=== PATIENT | female | born 1980 | race Caucasian/White ===

== ENCOUNTER 2016-03-16 09:07 | Inpatient (IN) | payer OTHER ==
[~2016-03-16] VITALS: Ht 167.6 cm; Wt 84.0 kg
[2016-03-16 09:15] VITALS: Ht 167.6 cm; Wt 84.0 kg
[2016-03-16] MEDS ORDERED: LACTATED RINGER'S 1,000 ML IV SCH (09:28)
[2016-03-16] MEDS ORDERED: LIDOCAINE 1% (MPF) 30 ML INJ INJ PRN (09:30)
[2016-03-16] MEDS ORDERED: MISOPROSTOL 200 MCG TAB PR PRN ×2 (09:30→14:30)
[2016-03-16] MEDS ORDERED: BUTORPHANOL 2 MG INJ IV PRN ×2 (09:30)
[2016-03-16] MEDS ORDERED: OXYTOCIN 30 UNITS/LR 500 ML IV PRN ×2 (09:30→14:30)
[2016-03-16] MEDS ORDERED: CARBOPROST 250 MCG INJ IM PRN ×2 (09:30→14:30)
[2016-03-16] MEDS ORDERED: LACTATED RINGER'S 1,000 ML IV PRN (09:30)
[2016-03-16] MEDS ORDERED: AMPICILLIN 2 GM/NS (PMX) 100 ML IV ONE (09:30)
[2016-03-16] MEDS ORDERED: METHYLERGONOVINE 0.2 MG INJ IM PRN ×2 (09:30→14:30)
[2016-03-16 10:05] LABS: BASOPHILS % 0.3 % (0.0-2.0); EOSINOPHILS # 0.1 10^3/ul (0.0-0.5); EOSINOPHILS % 1.3 % (0.0-7.0); HEMATOCRIT 32.4 % (37.0-47.0); HEMOGLOBIN 10.7 g/dl (12.0-16.0); LYMPHOCYTES % 20.1 % (15.0-51.0); MEAN CORPUSCULAR HEMOGLOBIN 27.7 pg (29.0-33.0); MEAN CORPUSCULAR HGB CONC 33.1 g/dl (32.0-37.0); MEAN CORPUSCULAR VOLUME 83.8 fl (82.0-101.0); MEAN PLATELET VOLUME 9.4 fl (7.4-10.4); MONOCYTE # 0.7 10^3/ul (0.3-0.9); MONOCYTES % 7.3 % (0.0-11.0); PLATELET COUNT 220 10^3/UL (140-440); RED BLOOD COUNT 3.87 10^6/ul (4.20-5.40); RED CELL DISTRIBUTION WIDTH 14.7 % (11.5-14.5); UNCORRECTED WBC 9.9 10^3/ul (4.8-10.8); WHITE BLOOD COUNT 9.9 10^3/ul (4.8-10.8)
[2016-03-16 10:07] LABS: CONDITION 1; LH ANALYZER COMMENTS 1
[2016-03-16 10:08] LABS: INR 0.94; PROTIME 12.6 Sec (12.2-14.2)
[2016-03-16 10:09] LABS: PARTIAL THROMBOPLASTIN TIME 29.1 Sec (25.0-35.0)
[2016-03-16] MEDS ORDERED: MINERAL OIL LIGHT 10 ML VIAL TOP ONE (10:30)
[2016-03-16] MEDS: OXYTOCIN 30 UNITS/LR 500 ML IV SCH ×2 (11:05→13:10)
--- NOTE | 2016-03-16 11:13 | HP ---
Date/Time of Note Date/Time of Note DATE: 03/16/16 TIME: 11:10 OB - History Hx of Present Free Text/Dictation admitted in active labor at 39+ weeks Chief Complaint: labor pains Estimated Due Date: Mar 22, 2016 : 5 Para: 3 Spontaneous : 1 Care: Good Care Ultrasounds: Normal mid trimester US Obstetrical Complications: None Medical Complications: Other (breast augmentation ) Past Family/Social History * Past Medical, Surgical, Family and Obstetric Histories reviewed from chart. Blood Type: O+ OB Admission Exam Physical Exam HEENT: WNL Heart: Rhythm Normal Lungs: Clear, Equal Abdomen: WNL Extremities: Normal Reflexes: Normal Cervical Dilatation: 5cm Effacement: 100% Station: -2 Membranes: Intact Heart Rate: 130's Accelerations: Accelerations Present Decelerations: No Decelerations Varibility: Moderate Contractions on Admission: < 5 Minutes Apart Date/Time Contractions Began: 03/16/2016 Frequency of Contractions: q5 Duration: >30 seconds Intensity: Moderate Last 72 hours Lab Results CBC & BMP 03/16/16 08:45 OB Assessment/Plan Reason for admission: active labor Other Assessment: term gestation Plan: Expectant Management Other plan: Proceed with labor SHAWN ZELAYA MD Mar 16, 2016 11:13
--- NOTE | 2016-03-16 11:15 | LDN ---
Date/Time of Note Date/Time of Note DATE: 03/16/16 TIME: 11:13 Delivery Summary of a viable infant over intact perineum Placenta Delivered: Spontaneously, Intact & Complete Meconium: none Perineum intact?: Yes Anesthesia type: None Estimated blood loss: 300 Sponge & Needle done & correct: Yes All needle counts correct: Yes Any foreign bodies felt in the: No Problems: Infant Delivery Information Sex Infant Sex: female Apgars 1 Minute: 9 5 Minute: 9 Suctioning Nose & mouth suctioned at lloyd: Yes Umbilical Cord Umbilical cord with: 3 Vessels Cord presentations: no nuchal cord Cord Blood was obtained: Yes Mother & Baby Disposition Disposition Mom & Baby to Maternity; Good: Yes (mother and baby were recovered in good condition ) Mom transferred to: Other (maternity ) Baby to NICU: No SHAWN ZELAYA MD Mar 16, 2016 11:15
[2016-03-16] MEDS ORDERED: OXYTOCIN 30 UNITS/LR 500 ML IV SCH (11:30)
[2016-03-16] MEDS ORDERED: AMPICILLIN 1 GM/NS (PMX) 50 ML IV SCH (13:30)
[2016-03-16 13:50] VITALS: BP 111/58; PULSE 55; RESP 18
[2016-03-16 14:10] VITALS: BP 112/56; PULSE 67; RESP 18
[2016-03-16] MEDS ORDERED: ZOLPIDEM 5 MG TAB PO PRN (14:30)
[2016-03-16] MEDS ORDERED: BENZOCAINE 20% 56 ML SPRAY TOP PRN (14:30)
[2016-03-16] MEDS ORDERED: ACETAMINOPHEN/CODEINE #3 TAB PO PRN (14:30)
[2016-03-16] MEDS ORDERED: DIBUCAINE 1% 30 GM OINT PR PRN (14:30)
[2016-03-16] MEDS ORDERED: WITCH HAZEL/GLYCERIN PAD PR PRN (14:30)
[2016-03-16] MEDS ORDERED: LANOLIN 7 GM TUBE TOP PRN (14:30)
[2016-03-16 15:36] VITALS: BP 107/54; PULSE 53; RESP 18
[2016-03-16] MEDS: IBUPROFEN 600 MG TAB PO SCH ×2 (17:24→23:46)
--- NOTE | 2016-03-16 18:10 | OPRPT ---
Intraop Record Datetime Report Generated by CPN: 03/16/2016 13:18 Datetime: 03/09/2016 20:56 Drug Allergies/Reactions: No Known Drug Allergies (03/09/2016) Datetime: 03/09/2016 20:44 Food Allergies/Reactions: PT. DENIES Latex Allergies/Reactions: No Latex Allergies Datetime: 03/09/2016 20:40 Drug Allergies/Reactions: No Known Drug Allergies (09/19/2015)
--- NOTE | 2016-03-16 18:10 | DELSUM ---
Delivery Summary A-C Datetime Report Generated by CPN: 03/16/2016 13:16 DELIVERY PERSONNEL [employer] Applier: Shari Leija MATERNAL INFORMATION Delivery Anesthesia: None Medications in Delivery: Oxytocin 30 units Estimated Blood Loss (ml): 300 Placenta Cultured: No Maternal Complications: None LABOR SUMMARY EDC: 03/22/2016 00:00 No. Babies in Womb: 1 Attempted: No Labor Anesthesia: None LABOR INFORMATION Reason for Induction: Not Applicable Onset of Labor: 03/16/2016 02:00 Complete Dilatation: 03/16/2016 10:52 Oxytocin: N/A Group B Beta Strep: Negative Group B Beta Strep: Negative Antibiotics # of Doses: 0 Steroids Given: None Reason Steroids Not Administered: Not Applicable MEMBRANES Membranes Rupture Method: Artificial Membranes Rupture Method: Artificial Rupture of Membranes: 03/16/2016 10:49 Length of Rupture (hr): 0.22 Amniotic Fluid Color: Clear Amniotic Fluid Color: Clear Amniotic Fluid Amount: Moderate Amniotic Fluid Amount: Moderate Amniotic Fluid Odor: Normal Amniotic Fluid Odor: Normal STAGES OF LABOR Stage 1 hr: 8 Stage 1 min: 52 Stage 2 hr: 0 Stage 2 min: 10 Stage 3 hr: 0 Stage 3 min: 3 Total Time in Labor hr: 9 Total Time in Labor min: 5 VAGINAL DELIVERY Episiotomy: None Laceration Extension: N/A Laceration Type: None Laceration Repair: Not Applicable Initial Vag Sponge Count: 20 Final Vag Sponge Count: 20 Initial Vag Sharps Count: 1 Final Vag Sharps Count: 1 Sponge Count Correct: Yes; Vaginal Sweep Performed BABY A INFORMATION Infant Delivery Date/Time: 03/16/2016 11:02 Method of Delivery: Vaginal Method of Delivery: Vaginal Born in Route : No : N/A Forceps: N/A Vacuum Extraction: N/A Shoulder Dystocia : N/A SHOULDER DYSTOCIA BABY A Infant Delivery Date/Time: 03/16/2016 11:02 PRESENTATION/POSITION BABY A Presentation: Cephalic Cephalic Presentation: Vertex Vertex Position: Left Occipital Anterior Breech Presentation: N/A PLACENTA INFORMATION BABY A Placenta Delivery Time : 03/16/2016 11:05 Placenta Method of Delivery: Spontaneous Placenta Status: Delivered SCORES BABY A Heart Rate 1 min: >100 bpm Resp Effort 1 min: Good Cry Reflex Irritability 1 min: Cough/Sneeze/Pulls Away Muscle Tone 1 min: Active Motion Color 1 min: Body [place], Extremit Blue Resuscitation Effort 1 min: Tactile Stimulation SCORE 1 MIN: 9 Heart Rate 5 min: >100 bpm Resp Effort 5 min: Good Cry Reflex Irritability 5 min: Cough/Sneeze/Pulls Away Muscle Tone 5 min: Active Motion Color 5 min: Body [place], Extremit Blue Resuscitation Effort 5 min: Tactile Stimulation SCORE 5 MIN: 9 INFORMATION BABY A Gestational Age at Delivery: 39.1 Gestational Status: Full Term- 39- 40.6 Weeks Infant Outcome : Liveborn Infant Condition : Stable Sex: Female IDENTIFICATION/MEDS BABY A ID Band Number: [id number] ID Band Location: Right Leg Sensor Applied: Yes Sensor Number: [id number] Sensor Location : Cord Clamp Vitamin K Given : Not Given Erythromycin Given: Not Given WEIGHT/LENGTH BABY A Birthweight (gm): 2985 Infant Weight (lb): 6 Infant Weight (oz): 9 Infant Length (in): 20.00 Infant Length (cm): 50.80 CORD INFORMATION BABY A No. Cord Vessels: 3 Nuchal Cord : N/A Cord Blood Taken: Yes Suction: Mouth; Nose ASSESSMENT BABY A Infant Complications: None Physical Findings at Delivery: Within Normal Limits Respirations: Appears Normal Unstacker/ALS Called : No Infant Care By: Mayur Tucker RN Transferred To: Remains with Mother
--- NOTE | 2016-03-16 18:10 | DELSUM ---
Delivery Summary A-C Datetime Report Generated by CPN: 03/16/2016 13:18 DELIVERY PERSONNEL Rubber Press Operator: Shari Leija MATERNAL INFORMATION Delivery Anesthesia: None Medications in Delivery: Oxytocin 30 units Estimated Blood Loss (ml): 300 Placenta Cultured: No Maternal Complications: None LABOR SUMMARY EDC: 03/22/2016 00:00 No. Babies in Womb: 1 Attempted: No Labor Anesthesia: None LABOR INFORMATION Reason for Induction: Not Applicable Onset of Labor: 03/16/2016 02:00 Complete Dilatation: 03/16/2016 10:52 Oxytocin: N/A Group B Beta Strep: Negative Group B Beta Strep: Negative Antibiotics # of Doses: 0 Steroids Given: None Reason Steroids Not Administered: Not Applicable MEMBRANES Membranes Rupture Method: Artificial Membranes Rupture Method: Artificial Rupture of Membranes: 03/16/2016 10:49 Length of Rupture (hr): 0.22 Amniotic Fluid Color: Clear Amniotic Fluid Color: Clear Amniotic Fluid Amount: Moderate Amniotic Fluid Amount: Moderate Amniotic Fluid Odor: Normal Amniotic Fluid Odor: Normal STAGES OF LABOR Stage 1 hr: 8 Stage 1 min: 52 Stage 2 hr: 0 Stage 2 min: 10 Stage 3 hr: 0 Stage 3 min: 3 Total Time in Labor hr: 9 Total Time in Labor min: 5 VAGINAL DELIVERY Episiotomy: None Laceration Extension: N/A Laceration Type: None Laceration Repair: Not Applicable Initial Vag Sponge Count: 20 Final Vag Sponge Count: 20 Initial Vag Sharps Count: 1 Final Vag Sharps Count: 1 Sponge Count Correct: Yes; Vaginal Sweep Performed BABY A INFORMATION Infant Delivery Date/Time: 03/16/2016 11:02 Method of Delivery: Vaginal Method of Delivery: Vaginal Born in Route : No : N/A Forceps: N/A Vacuum Extraction: N/A Shoulder Dystocia : N/A SHOULDER DYSTOCIA BABY A Infant Delivery Date/Time: 03/16/2016 11:02 PRESENTATION/POSITION BABY A Presentation: Cephalic Cephalic Presentation: Vertex Vertex Position: Left Occipital Anterior Breech Presentation: N/A PLACENTA INFORMATION BABY A Placenta Delivery Time : 03/16/2016 11:05 Placenta Method of Delivery: Spontaneous Placenta Status: Delivered SCORES BABY A Heart Rate 1 min: >100 bpm Resp Effort 1 min: Good Cry Reflex Irritability 1 min: Cough/Sneeze/Pulls Away Muscle Tone 1 min: Active Motion Color 1 min: Body [place], Extremit Blue Resuscitation Effort 1 min: Tactile Stimulation SCORE 1 MIN: 9 Heart Rate 5 min: >100 bpm Resp Effort 5 min: Good Cry Reflex Irritability 5 min: Cough/Sneeze/Pulls Away Muscle Tone 5 min: Active Motion Color 5 min: Body [place], Extremit Blue Resuscitation Effort 5 min: Tactile Stimulation SCORE 5 MIN: 9 INFORMATION BABY A Gestational Age at Delivery: 39.1 Gestational Status: Full Term- 39- 40.6 Weeks Infant Outcome : Liveborn Infant Condition : Stable Sex: Female IDENTIFICATION/MEDS BABY A ID Band Number: [id number] ID Band Location: Right Leg Sensor Applied: Yes Sensor Number: [id number] Sensor Location : Cord Clamp Vitamin K Given : Not Given Erythromycin Given: Not Given WEIGHT/LENGTH BABY A Birthweight (gm): 2985 Infant Weight (lb): 6 Infant Weight (oz): 9 Infant Length (in): 20.00 Infant Length (cm): 50.80 CORD INFORMATION BABY A No. Cord Vessels: 3 Nuchal Cord : N/A Cord Blood Taken: Yes Suction: Mouth; Nose ASSESSMENT BABY A Infant Complications: None Physical Findings at Delivery: Within Normal Limits Respirations: Appears Normal Solar Installer/ALS Called : No Infant Care By: Mayur Tucker RN Transferred To: Remains with Mother
[2016-03-16 19:45] VITALS: BP 100/51; PULSE 72; RESP 20
[2016-03-16] MEDS: SENNA/DOCUSATE NA (8.6MG/50MG) TAB PO SCH (20:44)
[2016-03-16] MEDS: MAGNESIUM HYDROXIDE 30ML CUP PO SCH (20:44)
[2016-03-17 04:15] VITALS: BP 93/54; PULSE 67; RESP 20
[2016-03-17] MEDS: IBUPROFEN 600 MG TAB PO SCH ×3 (05:42→17:54)
[2016-03-17 06:30] LABS: BASOPHILS % 0.3 % (0.0-2.0); EOSINOPHILS # 0.2 10^3/ul (0.0-0.5); EOSINOPHILS % 1.5 % (0.0-7.0); HEMATOCRIT 29.6 % (37.0-47.0); HEMOGLOBIN 9.8 g/dl (12.0-16.0); LYMPHOCYTES # 2.8 10^3/ul (0.8-2.9); LYMPHOCYTES % 25.2 % (15.0-51.0); MEAN CORPUSCULAR HEMOGLOBIN 27.9 pg (29.0-33.0); MEAN CORPUSCULAR HGB CONC 33.1 g/dl (32.0-37.0); MEAN CORPUSCULAR VOLUME 84.3 fl (82.0-101.0); MEAN PLATELET VOLUME 9.4 fl (7.4-10.4); MONOCYTE # 0.8 10^3/ul (0.3-0.9); MONOCYTES % 7.3 % (0.0-11.0); NEUTROPHIL # 7.4 10^3/ul (1.6-7.5); NEUTROPHILS % 65.7 % (39.0-77.0); PLATELET COUNT 197 10^3/UL (140-440); RED BLOOD COUNT 3.51 10^6/ul (4.20-5.40); RED CELL DISTRIBUTION WIDTH 14.9 % (11.5-14.5); UNCORRECTED WBC 11.3 10^3/ul (4.8-10.8); WHITE BLOOD COUNT 11.3 10^3/ul (4.8-10.8)
[2016-03-17 06:35] LABS: CONDITION 1; LH ANALYZER COMMENTS 1
[2016-03-17 07:52] VITALS: BP 104/63; PULSE 59; RESP 18
[2016-03-17] MEDS: LACTATED RINGER'S 1,000 ML IV* SCH (08:00)
[2016-03-17] MEDS: MAGNESIUM HYDROXIDE 30ML CUP PO SCH ×2 (08:43→21:00)
[2016-03-17] MEDS: SENNA/DOCUSATE NA (8.6MG/50MG) TAB PO SCH ×2 (08:43→21:00)
--- NOTE | 2016-03-17 15:05 | PN ---
Date/Time of Note Date/Time of Note DATE: 03/17/16 TIME: 15:03 Assessment/Plan VTE Prophylaxis VTE Prophylaxis Intervention: ambulation Lines/Catheters IV C[facility]ter Type (from [facility]): Peripheral IV Assessment/Plan Assessment/Plan S/P vaginal delivery PPD#! desires sterilization will schedule for BTL Subjective 24 Hr Interval Summary Free Text/Dictation No major complaints desires sterilization Constitutional: improved, no complaints Eyes: no complaints ENT: no complaints Respiratory: no complaints Cardiovascular: no complaints Gastrointestinal: no complaints Genitourinary: no complaints Musculoskeletal: no complaints Skin: no complaints Neurologic: no complaints Endocrine: no complaints Lymphatic: no complaints Psychological: nl mood/affect, no complaints Immunologic: no complaints Exam/Review of Systems Vital Signs Vitals Vital Signs Date Time Temp Pulse Resp B/P Pulse Ox O2 Delivery O2 Flow Rate FiO2 03/17/16 07:52 98.4 59 18 104/63 Room Air Intake and Output 03/16/16 03/16/16 03/17/16 15:00 23:00 07:00 Intake Total 1425 ml 575 ml Output Total 300 ml 900 ml Balance 1125 ml -325 ml Exam Constitutional: alert, oriented, well developed Psych: nl mood/affect, no complaints Head: atraumatic, normocephalic Eyes: EOMI, PERRL, nl conjunctiva, nl lids, nl sclera ENMT: nl external ears & nose, nl lips & teeth, nl nasal mucosa & septum Neck: non-tender, supple Respiratory: clear to auscultation, normal air movement Cardiovascular: nl pulses, regular rate and rhythm Gastrointestinal: nl liver, spleen, non-tender, soft Musculoskeletal: nl extremities to inspection, nl gait and stance Extremities: normal pulses Neurological: SPECIAL EDUCATION CURRICULUM SPECIALIST II-XII intact, nl mental status, nl speech, nl strength Skin: nl turgor, No rash or lesions Lymph: nl lymph nodes Results Result Diagram: 03/17/16 0542 Results 24 hrs Laboratory Tests Test 03/17/16 05:42 Basophils # 0.0 Basophils % 0.3 Blood Morphology Comment Eosinophils # 0.2 Eosinophils % 1.5 Hematocrit 29.6 L Hemoglobin 9.8 L Lymphocytes # 2.8 Lymphocytes % 25.2 Mean Corpuscular Hemoglobin 27.9 L Mean Corpuscular Hemoglobin Concent 33.1 Mean Corpuscular Volume 84.3 Mean Platelet Volume 9.4 Monocytes # 0.8 Monocytes % 7.3 Neutrophils # 7.4 Neutrophils % 65.7 Nucleated Red Blood Cells # 0.0 Nucleated Red Blood Cells % 0.0 Platelet Count 197 Red Blood Count 3.51 L Red Cell Distribution Width 14.9 H White Blood Count 11.3 H Medications Medications Current Medications Lactated Ringer's (Lr) 1,000 ml @ 125 mls/hr Q8H IV* ; Start 03/16/16 at 14:14 Ibuprofen (Motrin) 600 mg Q6 PO Last administered on 03/17/16 11:44; Admin Dose 600 MG; Start 03/16/16 at 18:00 Acetaminophen/ Codeine Phosphate (Tylenol No.3) 1 tab Q4H PRN PO PAIN LEVEL 1-5 ; Start 03/16/16 at 14:30 Acetaminophen/ Codeine Phosphate (Tylenol No.3) 2 tab Q4H PRN PO PAIN LEVEL 6- 10; Start 03/16/16 at 14:30 Zolpidem Tartrate (Ambien) 5 mg QHS PRN PO INSOMNIA; Start 03/16/16 at 14:30 Senna/Docusate Sodium (Senokot-S) 1 tab BID PO Last administered on 03/17/16 08 :43; Admin Dose 1 TAB; Start 03/16/16 at 21:00 Magnesium Hydroxide (Milk Of Mag) 30 ml Q12 PO Last administered on 03/17/16 08 :43; Admin Dose 30 ML; Start 03/16/16 at 21:00 Measles/Mumps/ Rubella Vaccine Live (Mmr Ii Vaccine) 0.5 ml ONCE ONCE SC* ; Start 03/18/16 at 09:00; Stop 03/18/16 at 09:01 Diphtheria/ Tetanus/Acell Pertussis (Adacel) 0.5 ml ONCE ONCE IM* ; Start at 09:00; Stop 03/18/16 at 09:01 Varicella Virus Vaccine Live 1350 unit 1,350 unit ONCE ONCE SC* ; Start 03/18/16 at 09:00; Stop 03/18/16 at 09:01 Oxytocin/Lactated Ringer's 500 ml @ 0 mls/hr ONCE PRN IV For Hemorrhage Management; Start 03/16/16 at 14:30 Methylergonovine Maleate (Methergine) 0.2 mg ONCE PRN IM VAGINAL BLEEDING; Start 03/16/16 at 14:30 Carboprost Tromethamine (Hemabate) 250 mcg ONCE PRN IM VAGINAL BLEEDING; Start 03/16/16 at 14:30 Misoprostol (Cytotec) 1,000 mcg ONCE PRN ND VAGINAL BLEEDING; Start 03/16/16 at 14:30 SHAWN ZELAYA MD Mar 17, 2016 15:05
[2016-03-17 16:00] VITALS: BP 112/68; RESP 18
[2016-03-17 20:00] VITALS: BP 99/53; PULSE 66; RESP 20
[2016-03-18] VITALS (15 sets, daily range): BP systolic 95–111; BP diastolic 50–73; PULSE 45–85; RESP 14–23
[2016-03-18] MEDS: IBUPROFEN 600 MG TAB PO SCH ×5 (00:27→23:56)
[2016-03-18] MEDS: LACTATED RINGER'S 1,000 ML IV* SCH ×6 (05:25→22:55)
[2016-03-18] MEDS ORDERED: ETOMIDATE 20 MG INJ ONE (07:00)
[2016-03-18] MEDS ORDERED: DIPHTH/TET/ACEL PERTUSS (ADULT) 0.5 ML VIAL IM* ONE (09:00)
[2016-03-18] MEDS ORDERED: VARICELLA VACCINE LIVE/PF 1,350 UNIT/0.5 ML ML SC* ONE (09:00)
[2016-03-18] MEDS: SENNA/DOCUSATE NA (8.6MG/50MG) TAB PO SCH ×2 (09:00→21:00)
[2016-03-18] MEDS ORDERED: MEASLES,MUMPS,RUBELLA VACCINE INJ SC* ONE (09:00)
[2016-03-18] MEDS: MAGNESIUM HYDROXIDE 30ML CUP PO SCH ×2 (09:00→21:00)
[2016-03-18] MEDS ORDERED: BUPIVACAINE 0.25%/EPI (SDV) 30 ML INJ ONE (16:43)
[2016-03-18] MEDS ORDERED: FENTAnyl 50 MCG/ML VIAL ONE (16:58)
[2016-03-18] MEDS ORDERED: GLYCOPYRROLATE 0.4 MG INJ ONE (17:49)
[2016-03-18] MEDS ORDERED: NEOSTIGMINE 3 MG/3 ML SYRINGE ONE (17:49)
[2016-03-18] MEDS ORDERED: SUCCINYLCHOLINE CHLORIDE 100 MG/5 ML SYG IV ONE (17:49)
[2016-03-18] MEDS ORDERED: ROCURONIUM 50 MG INJ ONE (17:49)
[2016-03-18] MEDS ORDERED: LIDOCAINE 2% (SDV) 5 ML INJ ONE (17:49)
[2016-03-18] MEDS ORDERED: PROPOFOL 40 ML ONE (17:49)
[2016-03-18] MEDS ORDERED: CEFAZOLIN 1 GM INJ ONE (17:50)
[2016-03-18] MEDS ORDERED: ROPIVACAINE 0.5 % 30 ML VIAL ONE (17:59)
[2016-03-18] MEDS ORDERED: HYDROmorphONE (0.2 MG/ML) 10ML SYG IV PRN ×3 (18:00)
[2016-03-18] MEDS ORDERED: FENTAnyl 50 MCG/ML VIAL IV PRN ×2 (18:00)
[2016-03-18] MEDS ORDERED: METOCLOPRAMIDE 10 MG INJ IV PRN (18:00)
[2016-03-18] MEDS ORDERED: ONDANSETRON 4 MG INJ IV PRN (18:00)
[2016-03-18] MEDS ORDERED: MEPERIDINE 25 MG INJ IV PRN (18:00)
[2016-03-18] MEDS ORDERED: KETOROLAC 60 MG INJ IM STA (18:17)
[2016-03-18] MEDS ORDERED: LACTATED RINGER'S 1,000 ML IV SCH (18:17)
--- NOTE | 2016-03-18 18:17 | DS ---
Date/Time of Note Date/Time of Note DATE: 03/18/16 TIME: 18:14 Obstetrical Discharge Record Final Diagnosis Final Diagnosis: Term delivered Vaginal Delivery Obstetrical Delivery: Spontaneous, Laceration, Repaired, Bilateral Tubal Ligation Condition on Discharge Physical Assessment Voiding: Yes Bowel Movement: Yes Breast: Soft, non-tender, Filling Fundus: Firm Abdomen and Incision: soft BS + Incision: covered Episiotomy: NA Calf Tenderness: No Patient Condition: Good SHAWN ZELAYA MD Mar 18, 2016 18:17
--- NOTE | 2016-03-18 18:21 | PD.PPDC ---
JIG WORKER Discharge Instruction Provider Information Physician Information 35 y/o female had vaginal delivery and bilateral tubal ligation Diagnosis Final Diagnosis: S/P vaginal delivery and Bilateral tubal ligation Condition Patient Condition: Good Diet Diet: Resume Regular Diet Activity/Restrictions Activity: Normal Activity May Shower Restrictions: Nothing in the Vagina Return to Work or School: May 05, 2016 Wound/Drain Care Instructions Wound/Drain Care Instructions: Keep clean and dry Follow-up Follow-up with Physician: 4, Week/Weeks Provider Information: in clinic Return to clinic for ITEM PROCESSOR Instructions: Fever greater than 101 Chills Excessive Vaginal Bleeding OB Instructions: Breast Tenderness Depression Surgical Instructions: Incisional Drainage Incisional Redness SHAWN ZELAYA MD Mar 18, 2016 18:21
[2016-03-18] MEDS ORDERED: IBUP-1542 PO (18:22)
[2016-03-18] MEDS ORDERED: ACET1TAB40 PO (18:22)
--- NOTE | 2016-03-18 18:26 | OPR ---
Operative Report Planned Procedure Procedure date Mar 18, 2016 Procedure(s) bilateral tubal ligation Performed by: SHAWN ZELAYA MD Anesthesiologist: ABHISHEK HEIN Pre-procedure diagnosis S/P vaginal delivery desires sterilization Anesthesia Type: general Procedure Description The patient was placed on the OR table in supine position. Spinal anesthesia was placed. A Yung catheter was then inserted into urinary bladder under aseptic condition. After induction of spinal anesthesia, with the patient in supine position, abdominal area was prepped and draped for usual tubal ligation procedure. Under satisfactory anesthesia, a small incision 2 to 3 cm in length was placed just below belly button, incision extended laterally to 1.5 cm lateral to the linea nigra on either side. Incision was carried down with sharp and blunt dissection until fascia was reached. Anterior recti muscle fascia was incised in the midportion. Incision extended laterally to the border of the skin incision. Peritoneum was visualized. Avoiding bowel or bladder, incision was made in peritoneum, which was extended laterally to the border of the skin incision. Two [place] retractors were placed inside the incision. Incision was brought up to the level of the left fallopian tube. Fallopian tube was raised in the mid portion. A clamp was placed below the fimbriated end, most of the fallopian tube from the mesosalpinx traversing the isthmus portion of the tube. Another clamp was placed just below the first and 0 Vicryl tie was used to tie the mesosalpinx and the stump of the fallopian tube on the proximal side. Another stitch of the same kind was used for adequate hemostasis. Hemostasis appeared to be secure on ligated sites of the fallopian tube. Tube was incised above the stitched area. Same procedure was done on the fallopian tube on opposite side. Hemostasis appeared to be secure on ligated sites of either fallopian tubes. Ovaries were within normal limits. Uterus appears to be size. Announcing needle, lap, sponge and instrument count to be correct, abdomen was closed in layers as follows: Peritoneum with running stitches of #1 Vicryl, fascia edges of #1 Vicryl, subcutaneous tissue with running stitches of #1 Vicryl, and skin was reapproximated using subcuticular stitches of 4-0 Monocryl on a PS2 needle and also Dermabond was placed on the incision. The patient tolerated the procedure very well and was transferred to postanesthesia recovery room in stable and good condition. ESTIMATED BLOOD LOSS: Less than 5 mL. Post-Procedure Post-procedure diagnosis S/P BTL Findings: nl R and L fallopian tubes Specimen removed: Yes Specimen description segments of R and L fallopian tubes Complications: None Pt Condition post procedure: stable Disposition: PACU Physician Certification I, the undersigned physician, hereby certify that I have discussed the procedure described in this consent form with this patient (or the patient's legal international representative), including: * The risk and benefits of the procedure; * Any adverse reactions that may reasonably be expected to occur; * Any alternative efficacious methods of treatment which may be medically viable ; * The potential problems that may occur during recuperation; * Potential for blood transfusion and associated risks/benefits; and * Any research or economic interest I may have regarding this treatment. I further certify that the patient/legally responsible person was encouraged to ask question and that all questions were answered. SHAWN ZELAYA MD Mar 18, 2016 18:26
[2016-03-18] MEDS ORDERED: BUTORPHANOL 2 MG INJ IM ONE (18:30)
[2016-03-18] MEDS ORDERED: PHENYLephrine (100 MCG/ML) 5ML SYG ONE (18:43)
[2016-03-18] MEDS ORDERED: KETOROLAC 30 MG INJ ONE (18:52)
--- NOTE | 2016-03-18 20:47 | QN ---
Documentation Comment Patient had onset of chest pain: EKG: showing T inversion in anterior leads Hospitalist consult requested Troponin levels ordered SHAWN ZELAYA MD Mar 18, 2016 20:47
[2016-03-18] MEDS: ACETAMINOPHEN/CODEINE #3 TAB PO PRN (21:57)
[2016-03-18] MEDS ORDERED: NITROGLYCERIN (SL) 0.4 MG TAB SL PRN (22:06)
[2016-03-19] VITALS: BP 98/59; PULSE 58; RESP 18
--- NOTE | 2016-03-19 00:03 | CONS ---
DATE OF ADMISSION: 03/16/2016 DATE OF CONSULTATION: REASON FOR CONSULTATION: Chest pain. HISTORY OF PRESENT ILLNESS: The patient is a 35-year-old female with no significant past medical hi story. The patient is status post bilateral tubal ligation earlier today. She then began to descri be sternal chest pain. She describes the pain as both pressure-like and sharp. There is no radiati on of the pain. There are no alleviating or exacerbating factors. She states that the pain now imp roved. EKG done earlier showed some T-wave inversions in anterior leads. The patient has no histor y of any cardiac issues. She has no history of such chest pain in the past. She states that the pa in began when she woke up from the surgery. She has no other complaints at this time. PAST MEDICAL HISTORY: Negative. PAST SURGICAL HISTORY: Bilateral tubal ligation today. HOME MEDICATIONS: 1. Tylenol with Codeine. 2. Ibuprofen. ALLERGIES: NO KNOWN DRUG ALLERGIES. FAMILY HISTORY: No cardiac history. SOCIAL HISTORY: Denies alcohol, tobacco, or drug abuse. REVIEW OF SYSTEMS: A 12-point review of systems negative except as in HPI. PHYSICAL EXAMINATION: VITAL SIGNS: Temperature is 98.3, pulse is 56, respiratory rate 16, BP 103/59, saturation 97% on ro om air. GENERAL: No acute distress, alert, and oriented. HEENT: Normocephalic, atraumatic. Pupils equal, round, reactive to light. LUNGS: Clear to auscultation. CARDIOVASCULAR: Regular rate and rhythm. ABDOMEN: Nondistended, nontender, soft. EXTREMITIES: No clubbing, cyanosis, or edema. LABORATORIES: WBC 11.3, hemoglobin 9.8, platelets 197. Chemistry: Troponin is negative 0.012. IN R is 0.94. RPR was nonreactive. DIAGNOSTICS: EKG shows normal sinus rhythm with T-wave inversions in anterior leads. ASSESSMENT AND PLAN: Chest pain. The patient has no risk factors. She is only 35 years old. No h istory of diabetes or hypertension. Chest pain is likely musculoskeletal in origin. The pain is po ssibly causing the T-wave inversions in anterior leads or this could be artifact. Regardless, first troponin is negative. We will check another 2 troponins. No indication for echo at this time. Th e pain has already improved and, once again, pain is likely secondary to musculoskeletal pain. Once 3 troponins negative, the patient is cleared for discharge per medicine. Dictated By: UMESH MARCUS MD BS/NTS Conf#: [id number] DID#: [id number]
[2016-03-19 04:00] VITALS: BP 90/60; PULSE 66; RESP 16
[2016-03-19] MEDS: LACTATED RINGER'S 1,000 ML IV* SCH (04:49)
[2016-03-19] MEDS: IBUPROFEN 600 MG TAB PO SCH ×2 (05:52→12:53)
[2016-03-19 07:40] VITALS: BP 96/69; PULSE 71; RESP 20
[2016-03-19] MEDS: ACETAMINOPHEN/CODEINE #3 TAB PO PRN (08:49)
[2016-03-19] MEDS: MAGNESIUM HYDROXIDE 30ML CUP PO SCH (09:00)
[2016-03-19] MEDS: SENNA/DOCUSATE NA (8.6MG/50MG) TAB PO SCH (09:00)
--- NOTE | 2016-03-19 12:02 | CONS ---
Date/Time of Note Date/Time of Note DATE: 03/19/16 TIME: 11:56 Consult Date/Type/Reason Admit Date/Time Mar 16, 2016 at 09:21 Initial Consult Date DATE: 03/18/16 Type of Consultation: Medical Reason for Consultation Medical management. Subjective Denies any dyspnea or chest pain. Objective General: Adequately build 35 year-old female lying in bed in no apparent distress. HEENT: Normocephalic, atraumatic. Eyes: Anicteric sclerae, conjunctivae clear. ENT: Nasal septum midline, oral mucosa moist. Neck supple, no JVD noticed. Respiratory: Bilaterally clear breath sounds. No use of accessory muscles of respiration. No adventitious breath sounds. Cardiovascular: S1, S2 heard. No murmurs or gallops. Abdomen: Distended. Soft and nontender. Bowel sounds positive in all 4 quadrants. Genitourinary: Deferred. Extremities: No cyanosis, no clubbing. Peripheral pulses palpable. Neurologic: Cranial nerves II through XII grossly intact. The patient is awake, alert, and oriented. Skin: Normal skin turgor. No skin rashes. Vital Signs Date Time Temp Pulse Resp B/P Pulse Ox O2 Delivery O2 Flow Rate FiO2 03/19/16 07:40 98.1 71 20 96/69 97 Room Air 03/18/16 18:36 2.0 Intake and Output 03/18/16 03/18/16 03/19/16 15:00 23:00 07:00 Intake Total 875 ml 1150 ml 500 ml Output Total 355 ml 800 ml Balance 875 ml 795 ml -300 ml Results/Medications Result Diagram: 03/17/16 0542 Results 24 hrs Laboratory Tests Test 03/18/16 20:55 03/19/16 02:11 03/19/16 08:00 Troponin I < 0.012 < 0.012 < 0.012 Medications Current Medications Ibuprofen (Motrin) 600 mg Q6 PO Last administered on 03/19/16t 05:52; Admin Dose 600 MG; Start 03/16/16 at 18:00 Acetaminophen/ Codeine Phosphate (Tylenol No.3) 1 tab Q4H PRN PO PAIN LEVEL 1-5 ; Start 03/16/16 at 14:30 Acetaminophen/ Codeine Phosphate (Tylenol No.3) 2 tab Q4H PRN PO PAIN LEVEL 6- 10 Last administered on 03/19/16 08:49; Admin Dose 2 TAB; Start 03/16/16 at 14:30 Zolpidem Tartrate (Ambien) 5 mg QHS PRN PO INSOMNIA; Start 03/16/16 at 14:30 Senna/Docusate Sodium (Senokot-S) 1 tab BID PO Last administered on 03/17/16 08 :43; Admin Dose 1 TAB; Start 03/16/16 at 21:00 Magnesium Hydroxide (Milk Of Mag) 30 ml Q12 PO Last administered on 03/17/16 08 :43; Admin Dose 30 ML; Start 03/16/16 at 21:00 Methylergonovine Maleate (Methergine) 0.2 mg ONCE PRN IM VAGINAL BLEEDING; Start 03/16/16 at 14:30 Carboprost Tromethamine (Hemabate) 250 mcg ONCE PRN IM VAGINAL BLEEDING; Start 03/16/16 at 14:30 Misoprostol 1000 mcg 1,000 mcg ONCE PRN OR VAGINAL BLEEDING; Start 03/16/16 at 14 :30 Lactated Ringer's (Lr) 1,000 ml @ 125 mls/hr Q8H IV* Last administered on 22:55; Admin Dose 125 MLS/HR; Start 03/18/16 at 20:49 Nitroglycerin (Nitroglycerin (Sl Tab) 0.4 Mg) 1 tab Q5M PRN SL CHEST PAIN; Start 03/18/16 at 22:06 Assessment/Plan Chief Complaint/Hosp Course 1. Atypical chest pain. Resolved. Chest pain most probably musculoskeletal in origin. Troponins 3 negative. T-wave inversion in anterior leads, nonspecific. No need for further cardiac workup. 2. Full-term . Status post vaginal delivery. Management as per OB/ [employer]. 3. Normocytic anemia. Stable H&H. 4. Fluids, electrolytes, and nutrition. Regular diet as tolerated. The patient is medically cleared to be discharged home. Case discussed with Dr. Orozco. Thank you for the consult. Problems: SANDRA PECK NP Mar 19, 2016 12:02
--- NOTE | 2016-03-20 13:39 | RADRPT ---
Vent Rate: 53 bpm RR Interval: 0 msec [place] Interval: 140 msec QRS Duration: 86 msec QT Interval: 420 msec QTC Interval: 394 msec P-R-T [place]: 23 - 24 - 26 degrees Sinus bradycardia Normal EKG Electronically Signed By: Mike Celis [id number]
== END 2016-03-19 14:30 | disposition home or self-care (01) | DRG 767 ==
LOC: OBT 09:07 → L-D 09:08 → OBT 09:20 → L-D 09:21 → PP1 14:09
PROVIDERS: ADMIT Obstetrics & Gynecology; ATTEND Obstetrics & Gynecology
PROC: 10E0XZZ Delivery of Products of Conception, External Approach (ICD-10-PCS; principal; 2016-03-16)
PROC: 10907ZC Drainage of Amniotic Fluid, Therapeutic from Products of Conception, Via Natural or Artificial Opening (ICD-10-PCS; 2016-03-16)
PROC: 0UB70ZZ Excision of Bilateral Fallopian Tubes, Open Approach (ICD-10-PCS; 2016-03-18)
DX: O80 Encounter for full-term uncomplicated delivery (principal); O09.523 Supervision of elderly multigravida, third trimester; Z30.2 Encounter for sterilization; Z3A.39 39 weeks gestation of pregnancy; Z37.0 Single live birth
CPT/HCPCS: 84484; 85025; 85610; 85730; 86592; 86900; 86901; 88302; 90715; 90716; 93005; G0463; J0290; J0330; J0690; J1885; J2370; J2590; J2710; J2795; J3010; J7120